=== PATIENT | male | born 1960 | race Caucasian/White ===

== ENCOUNTER → 2021-09-12 09:03 | Outpatient (CLI) | payer OTHER, SELFPAY ==
--- NOTE | ~2021-09-12 | CT_ITS ---
EXAMINATION: CTA abdomen pelvis DATE: 09/12/2021 09:59 INDICATION: Aneurysm of the left renal artery TECHNIQUE: Computed tomographic angiography (CTA) of the abdomen and pelvis was performed without and with 100 mL Omnipaque-350 intravenous contrast. Maximum intensity projection 3D-reconstructions of t he aorta and other arteries were constructed by the technologist on a separate workstation. The dose- length product (DLP) was 1856.83 mGy-cm. Automated exposure control and iterative reconstruction tech [employer] were employed. COMPARISON: None. FINDINGS: CTA abdomen pelvis: There is calcified atherosclerosis of the aorta without aneurysm or dissection. T he celiac axis, superior mesenteric artery, and inferior mesenteric artery are normal at their origin s. The lateral body of the stomach is supplied by a variant vessel arising from the superior mesenter ic artery. There are single renal arteries. 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 No internal thrombus is identified. The visualized lung bases are clear. The heart size is normal. Subendocardial fat deposition in the l eft ventricular apex may reflect prior myocardial infarction. Median sternotomy wires are noted. Ston es are present in the nondistended gallbladder. The liver, spleen, and adrenal glands are normal. The re is a 6 mm cystic lesion in the tail of the pancreas (axial image 49). The left kidney is unremarka ble. There is a 1.4 cm cyst of the right kidney. No pathologically enlarged abdominal or pelvic lymph nodes are identified. There is no free intraperitoneal gas or evidence of bowel obstruction. A surgi jose martin anastomosis is noted in the sigmoid colon. Colonic diverticulosis is present without evidence of diverticulitis. The appendix is unremarkable. There is mild lumbar spondylosis. IMPRESSION: 1. 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 2. 6 mm cystic lesion in the tail of the pancreas. The differential diagnosis includes pseudocyst, in traductal papillary mucinous neoplasm (IPMN), mucinous cystic neoplasm (MCN), and the less common ser ous cystadenoma and neuroendocrine tumor. Correlate for history of pancreatitis. Follow-up pancreas p rotocol CT or MRI without and with contrast is recommended in one year. 2. Cholelithiasis without evidence of cholecystitis. Reviewed, dictated and finalized at location A. MENTATION BILLING CLERK IMPRESSION: 1. 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 2. 6 mm cystic lesion in the tail of the pancreas. The differential diagnosis i ncludes pseudocyst, intraductal papillary mucinous neoplasm (IPMN), mucinous cy stic neoplasm (MCN), and the less common serous cystadenoma and neuroendocrine tumor. Correlate for history of pancreatitis. Follow-up pancreas protocol CT or MRI without and with contrast is recommended in one year. 2. Cholelithiasis without evidence of cholecystitis.
[2021-09-12 09:32] LABS: Estimated Glomerular Filt Rate > 60
== END ==
PROVIDERS: PCP Internal Medicine; Visit Provider Internal Medicine
DX: I72.2 Aneurysm of renal artery (principal); K80.20 Calculus of gallbladder without cholecystitis without obstruction; K86.2 Cyst of pancreas
CPT/HCPCS: 74174; Q9967